=== PATIENT | male | born 2000 | race African-American/Black ===

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

== ENCOUNTER 2022-05-25 21:31 | Emergency (ER) | payer OTHER ==
[~2022-05-25] VITALS: Ht 180.3 cm; Wt 81.8 kg
[2022-05-25] MEDS ORDERED: ALBU6.7H6 INH (21:52)
[2022-05-26] MEDS ORDERED: ACETAMINOPHEN TAB 650MG DOSE (2X325MG) PO ONE (05:15)
[2022-05-26 08:01] VITALS: BP 133/64
== END 2022-05-26 08:17 | disposition home or self-care (01) ==
LOC: M ED 21:31
DX: M23.91 Unspecified internal derangement of right knee (principal); W01.0XXA Fall on same level from slipping, tripping and stumbling without subsequent striking against object, initial encounter; Y93.67 Activity, basketball; J45.909 Unspecified asthma, uncomplicated; Z88.1 Allergy status to other antibiotic agents; Z88.6 Allergy status to analgesic agent; Z79.51 Long term (current) use of inhaled steroids

== ENCOUNTER → 2022-06-02 | Outpatient (CLI) | payer OTHER ==
[~2022-06-02] MED LIST: ALBU6.7H6 INH
== END ==
LOC: M PLAIMG 12:41
PROVIDERS: ATTEND Orthopaedic Surgery Adult Reconstructive Orthopaedic Surgery
DX: S83.281A Other tear of lateral meniscus, current injury, right knee, initial encounter (principal); S83.511A Sprain of anterior cruciate ligament of right knee, initial encounter; M25.461 Effusion, right knee; X58.XXXA Exposure to other specified factors, initial encounter; Y92.9 Unspecified place or not applicable; Y93.9 Activity, unspecified; Y99.9 Unspecified external cause status

== ENCOUNTER 2022-06-21 08:45 | Outpatient (RCR) | payer OTHER | END 2022-06-24 | LOC: M PT 08:45 | PROVIDERS: ATTEND Orthopaedic Surgery | DX: S83.281D Other tear of lateral meniscus, current injury, right knee, subsequent encounter (principal) ==

== ENCOUNTER 2022-07-20 08:30 | Outpatient (RCR) | payer OTHER | END 2022-07-25 | LOC: M PT 08:30 | PROVIDERS: ATTEND Orthopaedic Surgery | DX: S83.281D Other tear of lateral meniscus, current injury, right knee, subsequent encounter (principal) ==

== ENCOUNTER 2022-08-15 09:15 | Outpatient (RCR) | payer OTHER | END 2022-08-22 | LOC: M PT 09:15 | PROVIDERS: ATTEND Orthopaedic Surgery | DX: S83.281D Other tear of lateral meniscus, current injury, right knee, subsequent encounter (principal) ==

== ENCOUNTER 2022-08-29 07:00 | Outpatient (RCR) | payer OTHER | END 2022-09-22 | LOC: M PT 07:00 | PROVIDERS: ATTEND Orthopaedic Surgery | DX: S83.281A Other tear of lateral meniscus, current injury, right knee, initial encounter (principal) ==

== ENCOUNTER → 2022-11-21 | Outpatient (CLI) | payer OTHER | LOC: M RAD 11:55 | PROVIDERS: ATTEND Physician Assistant Medical | DX: M25.561 Pain in right knee (principal); Z85.46 Personal history of malignant neoplasm of prostate; M25.461 Effusion, right knee ==

== ENCOUNTER → 2022-12-14 | Outpatient (CLI) | payer OTHER | LOC: M PLAIMG 06:43 | PROVIDERS: ATTEND Physician Assistant | DX: S83.271A Complex tear of lateral meniscus, current injury, right knee, initial encounter (principal); S83.501A Sprain of unspecified cruciate ligament of right knee, initial encounter; M23.251 Derangement of posterior horn of lateral meniscus due to old tear or injury, right knee; X58.XXXA Exposure to other specified factors, initial encounter; Y92.9 Unspecified place or not applicable; Y93.9 Activity, unspecified; Y99.9 Unspecified external cause status ==

== ENCOUNTER 2023-07-21 13:05 | Emergency (ER) | payer OTHER, SELFPAY ==
[~2023-07-21] VITALS: Ht 185.4 cm; Wt 86.4 kg
[2023-07-21] MEDS ORDERED: ACET325C5 PO (15:42)
[2023-07-21] MEDS ORDERED: NAPR-837 PO (15:42)
[2023-07-21 15:48] VITALS: BP 137/79; TEMP 97.9; O2SAT 100
== END 2023-07-21 16:07 | disposition home or self-care (01) ==
LOC: M ED 13:05
DX: M25.461 Effusion, right knee (principal); W01.0XXA Fall on same level from slipping, tripping and stumbling without subsequent striking against object, initial encounter; Y93.67 Activity, basketball; Y92.830 Public park as the place of occurrence of the external cause; Y99.9 Unspecified external cause status; Z88.1 Allergy status to other antibiotic agents; Z88.6 Allergy status to analgesic agent; J45.909 Unspecified asthma, uncomplicated

== ENCOUNTER 2024-06-09 10:29 | Emergency (ER) | payer OTHER ==
[~2024-06-09] VITALS: Ht 188 cm; Wt 84.1 kg
[~2024-06-09 10:29] MED LIST changes: +ACET325C5 PO; +NAPR-837 PO
[2024-06-09 13:25] VITALS: BP 140/85; TEMP 97.6; O2SAT 99
[2024-06-09] MEDS ORDERED: METH-1165 PO (14:22)
[2024-06-09] MEDS: ACETAMINOPHEN 325 MG TAB PO ONE (14:25)
== END 2024-06-09 14:49 | disposition home or self-care (01) ==
LOC: EDBD 10:29 → M ED 10:29
DX: S43.401A Unspecified sprain of right shoulder joint, initial encounter (principal); S13.4XXA Sprain of ligaments of cervical spine, initial encounter; Y92.410 Unspecified street and highway as the place of occurrence of the external cause; Y93.9 Activity, unspecified; Y99.9 Unspecified external cause status; V49.50XA Passenger injured in collision with unspecified motor vehicles in traffic accident, initial encounter; J45.909 Unspecified asthma, uncomplicated; Z88.1 Allergy status to other antibiotic agents; Z88.8 Allergy status to other drugs, medicaments and biological substances; Z91.018 Allergy to other foods; Z79.1 Long term (current) use of non-steroidal anti-inflammatories (NSAID); Z79.51 Long term (current) use of inhaled steroids; Z79.899 Other long term (current) drug therapy

== ENCOUNTER → 2024-06-13 | Outpatient (CLI) | payer OTHER ==
[~2024-06-13] MED LIST changes: +METH-1165 PO
== END ==
LOC: M SOG 09:56
PROVIDERS: ATTEND Physician Assistant
DX: M25.561 Pain in right knee (principal)